=== PATIENT | male | born 1965 | race Caucasian/White ===

== ENCOUNTER 2018-04-24 12:07 | Inpatient (IN) ==
[2018-04-24] MEDS: *HR* Heparin 5,000 UNIT/ML VIAL SQ SCH (19:00)
[2018-04-24] MEDS: *HR* HYDROcodone/Acet 5/325 mg TABLET PO PRN ×2 (19:01→23:24)
[2018-04-24] MEDS: Bumetanide 1 MG TABLET PO SCH (20:10)
[2018-04-24] MEDS: Lactobacillus 1 EACH CAP.SPRINK PO SCH (22:18)
[2018-04-24] MEDS: traZODone 50 MG TABLET PO SCH (22:18)
[2018-04-24] MEDS: hydrALAZINE 25 MG TABLET PO SCH (22:19)
[2018-04-25] MEDS: *HR* Heparin 5,000 UNIT/ML VIAL SQ SCH ×2 (05:33→17:00)
[2018-04-25] MEDS: *HR* HYDROcodone/Acet 5/325 mg TABLET PO PRN ×4 (05:34→19:12)
[2018-04-25 05:53] LABS: Basophils # 0.1 K/mcL (0.0-0.2); Basophils % 0.5 %; Eosinophils # 0.5 K/mcL (0.0-0.6); Eosinophils % 3.4 %; Hematocrit 31.9 % (37.5-50.1); Immature Granulocytes % 9.6 % (0-4); Lymphocytes # 1.9 K/mcL (0.6-4.6); Lymphocytes % 12.3 %; Mean Corpuscular HGB Conc 31.3 g/dL (31.6-35.5); Mean Corpuscular Hemoglobin 26.4 pg (28.0-33.3); Mean Corpuscular Volume 84.2 fL (83.0-100.0); Mean Platelet Volume 8.4 fL (9.4-12.4); Monocytes # 0.9 K/mcL (0.0-1.3); Monocytes % 5.7 %; Platelet Count 273 K/mcL (140-400); Red Blood Count 3.79 M/mcL (4.19-5.50); Red Cell Distribution Width 15.9 % (11.5-14.5); Segmented Neutrophils % 68.5 %
[2018-04-25 06:08] LABS: Alanine Aminotransferase 92 Units/L (7-52); Albumin 2.4 g/dL (3.5-5.7); Albumin/Globulin Ratio 0.9 (1.1-2.2); Alkaline Phosphatase 94 Units/L (34-104); Aspartate Amino Transferase 42 Units/L (13-39); BUN/Creatinine Ratio 21 (6-26); Bilirubin,Total 0.4 mg/dL (0.3-1.0); Blood Urea Nitrogen 16 mg/dL (6-20); Calcium 12.4 mg/dL (8.6-10.3); Carbon Dioxide 27 mEq/L (23-29); Chloride 103 mEq/L (98-107); Globulin 2.8 g/dL (2.4-3.5); Glucose 94 mg/dL (70-105); Osmolality,Calculated 275 (280-300); Potassium 3.7 mEq/L (3.5-5.1); Sodium 132 mEq/L (136-145); Total Protein 5.2 g/dL (6.4-8.9); eGFR For Non-African Americans > 60 (> 60)
[2018-04-25 06:40] LABS: Neutrophils # 10.3 K/mcL (1.6-8.9)
[2018-04-25] MEDS: Lactobacillus 1 EACH CAP.SPRINK PO SCH ×2 (09:03→20:13)
[2018-04-25] MEDS: hydrALAZINE 25 MG TABLET PO SCH ×2 (09:03→20:13)
[2018-04-25] MEDS: Multivit/Ca/Min/Fe/FA 1 TAB TABLET PO SCH (09:03)
[2018-04-25] MEDS: Loratadine 10 MG TABLET PO SCH (09:03)
[2018-04-25] MEDS: Aspirin Enteric Coated 81 MG Tablet PO SCH (09:04)
[2018-04-25] MEDS: Bumetanide 1 MG TABLET PO SCH ×2 (09:04→16:59)
--- NOTE | 2018-04-25 15:22 | Internal Med History&Physical ---
Date of Encounter: 04/25/18 Time of Encounter: 15:10 Assessment and Plan (1) Pleural effusion Current visit: No Status: Acute Will continue on antibiotics for 2 weeks and watch his drainage, intermittently checked CBC, follow clinically. For now, we will simply keep him to a dry dressing. (2) Hypercalcemia Current visit: No Status: Acute We will keep him on medication and follow calcium, intermittently. Follow-up with general surgery, as planned. (3) CAD (coronary artery disease) Current visit: No Status: Chronic Clinically stable but will need preoperative evaluation by cardiology as noted. I will not restart Klonopin at this time but will defer to cardiology. Qualifiers: Coronary Disease-Associated Artery/Lesion type: unspecified vessel or lesion type [place] vs. transplanted heart: [place] heart Associated angina: without angina Qualified Code(s): I25.10 - Atherosclerotic heart disease of [place] coronary artery without angina pectoris (4) HTN (hypertension) Current visit: No Status: Chronic Clinically stable on current regimen. Will continue as planned. Qualifiers: Hypertension type: essential hypertension Qualified Code(s): I10 - Essential (primary) hypertension (5) GERD (gastroesophageal reflux disease) Current visit: No Status: Acute Stable on PPI and sucralfate. Qualifiers: Esophagitis presence: esophagitis presence not specified Qualified Code(s): K21.9 - Gastro-esophageal reflux disease without esophagitis (6) Anxiety and depression Current visit: No Status: Chronic Treated with sertraline and trazodone, daily. (7) DVT prophylaxis Current visit: No Status: Acute Discussed with patient and he agrees to use heparin subcutaneous as the likelihood of bleeding related to this is minimal. I told him that if his drainage becomes more than pink he should let us know, immediately. (8) H/O mitral valve replacement Current visit: No Status: Chronic Clinically stable and apparently only symptoms have been dyspnea on exertion which is improving with weight loss. (9) Atrial flutter Current visit: No Status: Chronic Per history, this is paroxysmal and the patient is currently in normal sinus rhythm. Qualifiers: Atrial flutter type: unspecified Qualified Code(s): I48.92 - Unspecified atrial flutter (10) ROBERTO on CPAP Current visit: No Status: Chronic The patient states that this is stable and he is looking forward to having his home CPAP unit. (11) Morbid obesity with BMI of 60.0-69.9, adult Current visit: No Status: Chronic This is ongoing but patient is aware that he needs to lose weight and has been working on same. (12) Peripheral edema Current visit: No Status: Acute The patient relates this to recent medical disruption and we will follow. (13) TIA (acute kidney injury) Current visit: No Status: Acute Apparently resolved. (14) Hyponatremia Current visit: No Status: Resolved This is now marginal at 132 and we will follow. We will use only a low salt diet (15) Parathyroid adenoma Current visit: No Status: Acute Left lower pole per sestamibi scan. This will be followed by general surgery, as noted. (16) Postoperative bleeding from incision Current visit: No Status: Acute Will watch clinically and keep an eye on white count, temperature, etc. (17) Herpes simplex Current visit: No Status: Acute I am not sure that this diagnosis is accurate but we will follow as it seems that these issues are resolving, currently. Internal Medicine - H&P: HPI Chief complaint: Weakness Admitted From: Hospital to Hospital Transfer Plans for Post Hospital Care: Home History of present illness: Mr. Zheng is a 52 year old male with a complicated history. He was admitted 3 times because of dyspnea, chest discomfort, and weakness. The first time was about 3 weeks ago when he had empyema and ended up with a chest tube with reaccumulation of fluid. He had suturing the most recent time and was found at the third hospital visit to have hypercalcemia. Because of holding of his diuretic, he was felt to be enuretic and underwent dialysis but when he protested he was found to have normal renal function, or at least adequate, and adequate urinary output. He states they held his diuretics were for 5 days and he became edematous, at that time. He states this is improving. He still has chest pain which is attributed to spasm at the left chest. This is especially severe with sneezing or coughing. He denies other chest pain and has not had any cardiac related chest pain for quite some time. Because of his hypercalcemia, he was found to have a left lower lobe parathyroid probable adenoma and was seen by general surgery who plans to see him in 2 weeks for possible parathyroid adenectomy. He was seen by endocrinology who placed him on medication and had normalization of his calcium. Because of hyponatremia and he was placed on fluid restriction. His sodium has been stable to improved. Review of his paperwork has 2 different plans for antibiotics: One says 3 days to complete a 5 day total course of another point in his thoracic surgery consultation recommends a total of 2 weeks of antibiotics until seen by them. While at the other hospital he fell and has a "knot" at the right inner, lower forearm, just above the olecranon process. He wanted this route because he keeps bumping it on things and the nurses refused to do so until seen by me. He has a rash which developed about 5 days ago and his sacral region, both sides. He states he gets this about every 6 months. He was told by Dr. avalos Hyannis that this was "herpes." He states that he has thought this was shingles. Past medical history is significant for atrial fibrillation which is happened on 2 occasions. He is not taking anticoagulation for same and is been in a regular rhythm on recent examinations. In 2013 he underwent a valve replacement of the mitral valve which she thinks is porcine. At that time he also had 3 stents of his coronary arteries and has not had any problems, thereafter. He states that her recent echocardiogram showed that his ejection fraction was 65%. General surgery requested cardiology evaluation preoperatively. This is apparently scheduled as an outpatient. 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 Corral. He is on a statin for hyperlipidemia and is on aspirin to prevent reocclusion of his stenoses. However, clopidogrel was discontinued. He has a history of gastritis and takes a PPI and sucralfate for same. He uses a CPAP for sleep apnea for about 5 years. He uses trazodone 50 mg as a sleep aid, every night. He is allergic to penicillin and sulfa but is unsure of the reaction. We discussed his medications intermittently during the interview. He has never been a smoker. He was an alcoholic but stopped drinking 25 years ago. He does not use marijuana or drugs. 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 He has been living with his parents, only because of his sickness. He has struggled with obesity, all his life. He has lost 50 pounds because he began to exercise in the summer but also because of his sickness in the late fall. Patient has no complaint of chest discomfort, dyspnea, orthopnea, breathing problems, palpitations, nausea or vomiting, constipation or diarrhea, other changes in bowel habits, heartburn, difficulty with urination, kidney problems or kidney stones, fevers chills or sweats, rash or itching, seizures, headache or lightheadedness, heat or cold intolerance, blood problems or anemia, or other new complaints, except as mentioned above. Review of systems is otherwise negative. Past Med Surg Social Fam HX - Past Medical History Medical history: atrial fibrillation, coronary artery disease, DVT, hyperlipidemia, hypertension, myocardial infarction, other Additional medical history: sleep apnea, rheumatic fever, arthritis, alcohol abuse, STEMI, tracheal stenosis, cholelithiasis Psychiatric history: anxiety, depression - Past Surgical History Surgical History: angioplasty/stent, cholecystectomy, heart valve replacement, orthopedic, other, other Additional surgical history: tracheostomy and tracheal dilitation x 6, last time November 2016 - Social History Smoking Status: Never smoker Smokeless Tobacco Status: Yes Alcohol use: none Drug use: none - Family History Father Adopted: No Family Member Ethnicity: Non- Living Status: Still Living Hx Family Cardiac Disorders: Yes (HTN, HLD) Hx Family Respiratory Disorders: No Hx Family Cancer: Yes (Chronic lyphmpatic lyphoma) Hx Family GI Disorders: Yes (ulcers,gerd) Hx Family Endocrine Disorder: No Hx Family Neuromuscular Disorders: No Hx Family Neurologic Disorders: No Hx Family HEENT Disorders: No Hx Family Autoimmune Disorders: No Mother Family Member Ethnicity: Non- Living Status: Still Living Hx Family Cardiac Disorders: Yes (HTN, HLD) Hx Family Respiratory Disorders: No Hx Family Cancer: Yes (skin) Hx Family GI Disorders: Yes Hx Family Endocrine Disorder: No Hx Family Neuromuscular Disorders: No Hx Family Neurologic Disorders: No Hx Family HEENT Disorders: No Hx Family Autoimmune Disorders: No Internal Medicine - H&P: Meds Aspirin [Adult Aspirin Regimen] 81 mg PO DAILY 02/12/18 [History] Loratadine [Claritin] 10 mg PO DAILY 02/12/18 [History] Multivitamin [One Daily Multivitamin] 2 tab PO DAILY 02/12/18 [History] Pantoprazole Sodium [Protonix] 20 mg PO BID 02/12/18 [History] Potassium Chloride [K-Tab ER] 20 meq PO DAILY 02/12/18 [History] Pravastatin Sodium [Pravachol] 40 mg PO DAILY 02/12/18 [History] Sertraline [Zoloft] 100 mg PO DAILY 02/12/18 [History] traZODone [TraZODone] 50 mg PO HS 02/12/18 [History] Albuterol Sulfate [Ventolin Hfa] 2 puff IH Q4H PRN #0 03/17/18 [Rx] Carvedilol [Coreg] 12.5 mg PO BIDWM #60 tablet 03/17/18 [Rx] Ferrous Sulfate 325 mg PO BIDWM #60 tablet 03/17/18 [Rx] Sucralfate [Carafate] 10 ml PO BID 04/08/18 [History] Bumetanide [Bumex] 1 mg PO BID 04/19/18 [History] HYDROcodone/Acet 5/325 mg [Hume 5-325 mg] 1 tab PO Q4H PRN 04/19/18 [History] Hydralazine HCl 50 mg PO BID 04/19/18 [History] Cinacalcet [Sensipar] 30 mg PO DAILY tablet 04/23/18 [Rx] Cinacalcet [Sensipar] 30 mg PO DAILY #30 tablet 04/23/18 [Rx] Clindamycin HCl [Cleocin HCl] 600 mg PO TID 15 Days #5 cap 04/23/18 [Rx] Lactobacillus Acidophilus [Acidophilus] 1 each PO BID 5 Days #10 capsule 04/23/18 [Rx] Allergy/AdvReac Type Severity Reaction Status Date / Time Penicillins Allergy See Verified 04/19/18 12:09 Comments Sulfa (Sulfonamide Allergy See Verified 04/19/18 12:09 Antibiotics) Comments All Systems PM: Please see history of present illness above. I. - Constitutional Vitals: Temp Pulse Resp BP Pulse Ox 97.9 F 66 16 138/80 98 04/25/18 11:49 04/25/18 11:49 04/25/18 11:49 04/25/18 11:49 04/25/18 11:49 Exam: Examination: (Except as mentioned above): General: In no apparent distress, alert and oriented 3. Patient is bald. Head: Atraumatic and normocephalic. Eyes: Extraocular muscles are intact, pupils equal round and reactive to light and accommodation. Sclerae anicteric. Ears: External ears are normal to inspection and hearing is grossly normal. Nose: Patent without lesion noted. Mouth: No intraoral lesions seen. Dentition is unremarkable. Neck: Supple with trachea midline. There is no thyromegaly or adenopathy but there is a prominence of the left lower thyroid pole which is consistent with unknown parathyroid adenoma and carotids are 2+ without bruit heard. Respiratory: No use of accessory muscles. Lungs are clear throughout. Normal airflow. Cardiovascular: Regular rate and rhythm without murmur appreciated. Abdomen: Bowel sounds are normal. No hepatosplenomegaly masses or tenderness. Morbidly obese and therefore difficult to palpate deeply. Patient is examined upright at bedside and this also limits exam. Extremities: No cyanosis clubbing but does have 2+ edema at left greater than right lower extremity. He has no asymmetry of right forearms. However, there is a tender, swollen area as described which is about 2.5 cm in diameter, just above the right olecranon process. It is mild to moderately tender with no abnormality of vein, otherwise. I suspect this represents resolving hematoma or superficial phlebitis but I see no sign of DVT or cellulitis.. Neurological: A and O 3. Cranial nerves II through XII are intact. No focal deficits and no abnormal movements or postures. Skin: He has left lower chest wound at the left posterior axillary line which is draining serosanguineous drainage in a fairly large amount. This is nonpurulent, has no foul smell. There also excoriated but crusted lesions at his upper sacral region, right greater than left. The patient points to his left upper buttock but the lesions at the right are more pronounced. He not show edema or signs of infection. Breasts, pelvic and rectal: Not examined. Internal Med - H&P Results - Labs CBC & Chem 7: 04/25/18 05:45 04/25/18 05:45 Labs: Short CBC 04/25/18 Range/Units 05:45 WBC 15.1 H (4.3-11.1) K/mcL Hgb 10.0 L (12.9-16.9) g/dL Hct 31.9 L (37.5-50.1) % Plt Count 273 (140-400) K/mcL Neutrophils # 10.3 H (1.6-8.9) K/mcL BMP 04/25/18 05:45 Sodium 132 L Potassium 3.7 Chloride 103 Carbon Dioxide 27 BUN 16 Creatinine 0.78 Glucose 94 Calcium 12.4 H Liver Function 04/25/18 Range/Units 05:45 Total Bilirubin 0.4 (0.3-1.0) mg/dL AST 42 H (13-39) Units/L ALT 92 H (7-52) Units/L Alkaline Phosphatase 94 (34-104) Units/L Albumin 2.4 L (3.5-5.7) g/dL
[2018-04-25] MEDS: traZODone 50 MG TABLET PO SCH (20:13)
[2018-04-26] MEDS: *HR* HYDROcodone/Acet 5/325 mg TABLET PO PRN ×4 (00:21→18:54)
[2018-04-26] MEDS: *HR* Heparin 5,000 UNIT/ML VIAL SQ SCH ×2 (05:50→17:21)
[2018-04-26] MEDS: Multivit/Ca/Min/Fe/FA 1 TAB TABLET PO SCH (08:10)
[2018-04-26] MEDS: Aspirin Enteric Coated 81 MG Tablet PO SCH (08:10)
[2018-04-26] MEDS: hydrALAZINE 25 MG TABLET PO SCH ×2 (08:11→19:51)
[2018-04-26] MEDS: Bumetanide 1 MG TABLET PO SCH ×2 (08:11→17:21)
[2018-04-26] MEDS: Loratadine 10 MG TABLET PO SCH (08:11)
[2018-04-26] MEDS: Lactobacillus 1 EACH CAP.SPRINK PO SCH ×2 (08:15→19:51)
--- NOTE | 2018-04-26 14:30 | Internal Med Progress Note ---
Date of Encounter: 04/26/18 Time of Encounter: 14:28 - Assessment and plan (1) Pleural effusion Current Visit: No Status: Acute Assessment and plan: Clinically stable. We will check white count, again tomorrow. No fever. He is to follow up with thoracic surgery in about 3 or 4 days. (2) Hypercalcemia Current Visit: No Status: Acute Assessment and plan: Will recheck tomorrow. (3) CAD (coronary artery disease) Current Visit: No Status: Chronic Assessment and plan: Clinically stable without symptoms. Qualifiers: Coronary Disease-Associated Artery/Lesion type: unspecified vessel or lesion type [place] vs. transplanted heart: [place] heart Associated angina: without angina Qualified Code(s): I25.10 - Atherosclerotic heart disease of [place] coronary artery without angina pectoris (4) HTN (hypertension) Current Visit: No Status: Chronic Assessment and plan: Marginally controlled. Qualifiers: Hypertension type: essential hypertension Qualified Code(s): I10 - Essent ial (primary) hypertension (5) GERD (gastroesophageal reflux disease) Current Visit: No Status: Acute Assessment and plan: No symptoms. Qualifiers: Esophagitis presence: esophagitis presence not specified Qualified Code(s): K21.9 - Gastro-esophageal reflux disease without esophagitis (6) Anxiety and depression Current Visit: No Status: Chronic Assessment and plan: Stable on SSRI and tricyclic. (7) DVT prophylaxis Current Visit: No Status: Acute Assessment and plan: Heparin subcutaneous. (8) H/O mitral valve replacement Current Visit: No Status: Chronic Assessment and plan: Stable and on no anticoagulation. (9) Atrial flutter Current Visit: No Status: Chronic Assessment and plan: Paroxysmal with no symptoms reported and no findings. Qualifiers: Atrial flutter type: unspecified Qualified Code(s): I48.92 - Unspecified atrial flutter (10) ROBERTO on CPAP Current Visit: No Status: Chronic (11) Morbid obesity with BMI of 60.0-69.9, adult Current Visit: No Status: Chronic (12) Peripheral edema Current Visit: No Status: Acute Assessment and plan: Slightly improved, per exam. (13) TIA (acute kidney injury) Current Visit: No Status: Acute Assessment and plan: Resolved. (14) Hyponatremia Current Visit: No Status: Resolved Assessment and plan: We will recheck tomorrow. (15) Parathyroid adenoma Current Visit: No Status: Acute Assessment and plan: For surgery and preoperative cardiac evaluation, as noted. (16) Postoperative bleeding from incision Current Visit: No Status: Acute Assessment and plan: Improving and will follow. (17) Herpes simplex Current Visit: No Status: Acute - Subjective Interval history: Patient is feeling reasonably well. He states that he has slightly improved his chest pain at the left lower chest. He would like to take a shower today and wonders if he can. Since yesterday at 7 PM he has had no drainage until just now. The drainage w hich saturates part of his dressing is pink serosanguineous fluid. It seems less than yesterday and intensity. Nursing asks if he can have MiraLAX when necessary and I complied. Discussed care with other providers and/or nursing. Patient has no complaint of chest discomfort, dyspnea, orthopnea, palpitations, nausea or vomiting, constipation or diarrhea, other changes in bowel habits, dif ficulty with urination, rash or itching, or other new complaints, except as mentioned above. Review of systems is otherwise negative. - Constitutional Vitals: Temp Pulse Resp BP Pulse Ox 98.3 F 82 18 150/83 96 04/26/18 11:00 04/26/18 11:00 04/26/18 11:00 04/26/18 11:00 04/26/18 11:00 Exam: Examination: (Except as mentioned above): General: In no apparent distress. Alert and oriented 3. Nondiaphoretic. Head: Atraumatic and normocephalic. Respiratory: No use of accessory muscles. Lungs are clear throughout. Normal airflow. Cardiovascular: Regular rate and rhythm without murmur appreciated. Abdomen: Bowel sounds are normal. No hepatosplenomegaly mass or tenderness appreciated. Obese and therefore difficult to palpate deeply. Patient is examined upright in chair and this also limits exam. Extremities: No cyanosis clubbing or edema. Skin: Warm and non-diaphoretic with no new lesions noted. Wound drainage is less pink than yesterday, as noted. It is not foul-smelling and actually relatively small in amount. Internal Medicine: Result - Labs CBC & Chem 7: 04/25/18 05:45 04/25/18 05:45 Consult Discharge Plan - Plan Referrals: NONE,PCP [Primary Care Provider] -
[2018-04-26] MEDS: traZODone 50 MG TABLET PO SCH (19:51)
[2018-04-27] MEDS: *HR* HYDROcodone/Acet 5/325 mg TABLET PO PRN ×4 (01:08→20:56)
[2018-04-27] MEDS: *HR* Heparin 5,000 UNIT/ML VIAL SQ SCH ×2 (06:04→16:36)
[2018-04-27] MEDS: Bumetanide 1 MG TABLET PO SCH ×2 (08:37→16:26)
[2018-04-27] MEDS: Lactobacillus 1 EACH CAP.SPRINK PO SCH ×2 (08:37→20:55)
[2018-04-27] MEDS: hydrALAZINE 25 MG TABLET PO SCH ×2 (08:37→20:56)
[2018-04-27] MEDS: Multivit/Ca/Min/Fe/FA 1 TAB TABLET PO SCH (08:38)
[2018-04-27] MEDS: Aspirin Enteric Coated 81 MG Tablet PO SCH (08:38)
[2018-04-27] MEDS: Loratadine 10 MG TABLET PO SCH (08:38)
[2018-04-27 14:59] LABS: ABG Ionized Calcium 1.69 mmol/L (1.15-1.35)
[2018-04-27 15:02] LABS: Basophils % 0.3 %; Eosinophils % 2.6 %; Hematocrit 30.9 % (37.5-50.1); Hemoglobin 9.6 g/dL (12.9-16.9); Immature Granulocytes % 2.9 % (0-4); Lymphocytes # 1.8 K/mcL (0.6-4.6); Lymphocytes % 13.6 %; Mean Corpuscular HGB Conc 31.1 g/dL (31.6-35.5); Mean Corpuscular Hemoglobin 26.2 pg (28.0-33.3); Mean Corpuscular Volume 84.2 fL (83.0-100.0); Mean Platelet Volume 8.8 fL (9.4-12.4); Monocytes # 0.6 K/mcL (0.0-1.3); Monocytes % 4.4 %; Neutrophils # 10.1 K/mcL (1.6-8.9); Platelet Count 279 K/mcL (140-400); Red Blood Count 3.67 M/mcL (4.19-5.50); Red Cell Distribution Width 15.8 % (11.5-14.5); Segmented Neutrophils % 76.2 %
[2018-04-27 15:03] LABS: Eosinophils # 0.4 K/mcL (0.0-0.6)
[2018-04-27 15:25] LABS: Alanine Aminotransferase 53 Units/L (7-52); Albumin 2.7 g/dL (3.5-5.7); Albumin/Globulin Ratio 0.8 (1.1-2.2); Alkaline Phosphatase 90 Units/L (34-104); Aspartate Amino Transferase 28 Units/L (13-39); BUN/Creatinine Ratio 16 (6-26); Bilirubin,Total 0.4 mg/dL (0.3-1.0); Blood Urea Nitrogen 16 mg/dL (6-20); Calcium 12.3 mg/dL (8.6-10.3); Carbon Dioxide 28 mEq/L (23-29); Chloride 104 mEq/L (98-107); Globulin 3.4 g/dL (2.4-3.5); Glucose 109 mg/dL (70-105); Osmolality,Calculated 286 (280-300); Sodium 137 mEq/L (136-145); Total Protein 6.1 g/dL (6.4-8.9); eGFR For Non-African Americans > 60 (> 60)
[2018-04-27] MEDS: traZODone 50 MG TABLET PO SCH (20:56)
[2018-04-28] MEDS: *HR* HYDROcodone/Acet 5/325 mg TABLET PO PRN ×4 (01:53→21:17)
[2018-04-28] MEDS: *HR* Heparin 5,000 UNIT/ML VIAL SQ SCH (05:04)
[2018-04-28] MEDS: Aspirin Enteric Coated 81 MG Tablet PO SCH (08:48)
[2018-04-28] MEDS: Bumetanide 1 MG TABLET PO SCH ×2 (08:48→16:23)
[2018-04-28] MEDS: Multivit/Ca/Min/Fe/FA 1 TAB TABLET PO SCH (08:49)
[2018-04-28] MEDS: Loratadine 10 MG TABLET PO SCH (08:49)
[2018-04-28] MEDS: hydrALAZINE 25 MG TABLET PO SCH ×2 (08:49→21:16)
[2018-04-28] MEDS: Lactobacillus 1 EACH CAP.SPRINK PO SCH ×2 (08:49→21:16)
[2018-04-28] MEDS ORDERED: Acetaminophen 325 MG TABLET PO PRN (10:13)
--- NOTE | 2018-04-28 11:48 | Internal Med Progress Note ---
Date of Encounter: 04/28/18 Time of Encounter: 11:47 - Assessment and plan (1) Pleural effusion Current Visit: No Status: Acute Assessment and plan: Because of his exam and not draining, we will recheck a chest x-ray to see if he is reaccumulating fluid. (2) Hypercalcemia Current Visit: No Status: Acute Assessment and plan: We will increase his cinacalcet to 60 mg daily and follow. (3) CAD (coronary artery disease) Current Visit: No Status: Chronic Assessment and plan: No signs or symptoms. Qualifiers: Coronary Disease-Associated Artery/Lesion type: unspecified vessel or lesion type [place] vs. transplanted heart: [place] heart Associated angina: without angina Qualified Code(s): I25.10 - Atherosclerotic heart disease of [place] coronary artery without angina pectoris (4) HTN (hypertension) Current Visit: No Status: Chronic Assessment and plan: Clinically stable and will follow. Qualifiers: Hypertension type: essential hypertension Qualified Code(s): I10 - Essen tial (primary) hypertension (5) GERD (gastroesophageal reflux disease) Current Visit: No Status: Acute Assessment and plan: Stable but will need to watch his GI symptoms with the increase in cinacalcet. Qualifiers: Esophagitis presence: esophagitis presence not specified Qualified Code(s): K21.9 - Gastro-esophageal reflux disease without esophagitis (6) Anxiety and depression Current Visit: No Status: Chronic Assessment and plan: Clinically stable and will follow. (7) DVT prophylaxis Current Visit: No Status: Acute Assessment and plan: See comments under subjective above. (8) H/O mitral valve replacement Current Visit: No Status: Chronic Assessment and plan: Stable without signs or symptoms. (9) Atrial flutter Current Visit: No Status: Chronic Assessment and plan: Regular per exam. Assuming normal sinus. Qualifiers: Atrial flutter type: unspecified Qualified Code(s): I48.92 - Unspecified at [facility] flutter (10) ROBERTO on CPAP Current Visit: No Status: Chronic Assessment and plan: Clinically stable. Has home unit and uses this at night. (11) Morbid obesity with BMI of 60.0-69.9, adult Current Visit: No Status: Chronic (12) Peripheral edema Current Visit: No Status: Acute Assessment and plan: No real change and will follow. (13) TIA (acute kidney injury) Current Visit: No Status: Acute Assessment and plan: Stable. (14) Parathyroid adenoma Current Visit: No Status: Acute Assessment and plan: For surgical appointment, this week. Will need to optimize care in anticipation of upcoming surgery. (15) Postoperative bleeding from incision Current Visit: No Status: Acute Assessment and plan: This seems to have resolved. (16) Herpes simplex Current Visit: No Status: Acute Assessment and plan: Uncertain diagnosis. - Subjective Interval history: Patient would like to stop receiving heparin and I felt that his ambulation is adequate. However, I did instruct him the use of venous return exercises. We discussed his hypercalcemia and increasing his cinacalcet. He still feels occasionally like he is sleepy or not thinking clearly. He would like to change to Tylenol from hydrocodone as his pain is improving but his thinking is somewhat limited. He admits to mild increase in nausea but no other GI symptoms. I told him that we would need to have him follow with his urologist, eventually. I told him we would increase his medication to 60 mg daily but that he could go up to 180 mg, if he needs to. We reviewed his markedly elevated ionized calcium and the fact that his calcium total has clearly decreased, at all. Bowels have moved well and not had diarrhea. He has no drainage for about 36 hours. Discussed care with other providers and/or nursing. Patient has no complaint of chest discomfort, dyspnea, orthopnea, palpitations, nausea or vomiting, constipation or diarrhea, other changes in bowel habits, difficulty with urination, rash or itching, or other new complaints, except as mentioned above. Review of systems is otherwise negative. - Constitutional Vitals: Temp Pulse Resp BP Pulse Ox 97.7 F 79 17 130/73 96 04/28/18 07:57 04/28/18 07:57 04/28/18 07:57 04/28/18 07:57 04/28/18 07:57 Exam: Examination: (Except as mentioned above): General: In no apparent distress. Alert and oriented 3. Nondiaphoretic. Head: Atraumatic and normocephalic. Respiratory: No use of accessory muscles. Lungs sounds are diminished at the left base and this is disconcerting versus yesterday with his history of not draining. Normal airflow, otherwise. Cardiovascular: Regular rate and rhythm without murmur appreciated. Abdomen: Bowel sounds are normal. No hepatosplenomegaly mass or tenderness appreciated. Obese and therefore difficult to palpate deeply. Patient is examined upright in chair and this also limits exam. Extremities: No cyanosis clubbing or change in edema. Skin: Warm and non-diaphoretic with no new lesions noted. His wound is looking intact and nearly healed. He has got no drainage on the skin but the dressing has minimal pink discoloration.. Internal Medicine: Result - Labs CBC & Chem 7: 04/27/18 14:19 04/27/18 14:19 Labs: Short CBC 04/27/18 Range/Units 14:19 WBC 13.3 H (4.3-11.1) K/mcL Hgb 9.6 L (12.9-16.9) g/dL Hct 30.9 L (37.5-50.1) % Plt Count 279 (140-400) K/mcL Neutrophils # 10.1 H (1.6-8.9) K/mcL BMP 04/27/18 14:19 Sodium 137 Potassium 4.0 Chloride 104 Carbon Dioxide 28 BUN 16 Creatinine 1.00 Glucose 109 H Calcium 12.3 H Liver Function 04/27/18 Range/Units 14:19 Total Bilirubin 0.4 (0.3-1.0) mg/dL AST 28 (13-39) Units/L ALT 53 H (7-52) Units/L Alkaline Phosphatase 90 (34-104) Units/L Albumin 2.7 L (3.5-5.7) g/dL Consult Discharge Plan - Plan Referrals: NONE,PCP [Primary Care Provider] -
[2018-04-28] MEDS: traZODone 50 MG TABLET PO SCH (21:16)
[2018-04-29] MEDS: *HR* HYDROcodone/Acet 5/325 mg TABLET PO PRN ×5 (03:28→22:38)
[2018-04-29] MEDS: hydrALAZINE 25 MG TABLET PO SCH ×2 (08:18→22:37)
[2018-04-29] MEDS: Aspirin Enteric Coated 81 MG Tablet PO SCH (08:18)
[2018-04-29] MEDS: Lactobacillus 1 EACH CAP.SPRINK PO SCH ×2 (08:18→22:37)
[2018-04-29] MEDS: Multivit/Ca/Min/Fe/FA 1 TAB TABLET PO SCH (08:18)
[2018-04-29] MEDS: Bumetanide 1 MG TABLET PO SCH ×2 (08:18→17:03)
[2018-04-29] MEDS: Loratadine 10 MG TABLET PO SCH (08:19)
--- NOTE | 2018-04-29 12:58 | Internal Med Progress Note ---
Addendum entered and electronically signed by Carlitos Allan MD 04/30/18 11:26: I have personally performed a face to face evaluation on this patient. I have r eviewed and agree with the care plan. History and Exam by me shows: For schedule and/or computer reasons, this note is a late entry. Patient was seen on the date of the initial note. Patient is without complaint. He is doing well with therapies. He is pleased to be going home in a few days. He feels generally better and I told him that he should improve as his calcium improves. Bowels and bladder have been functioning normally and he has no interval complaints. Discussed care with other providers and/or nursing. Patient has no complaint of chest discomfort, dyspnea, orthopnea, palpitations, nausea or vomiting, constipation or diarrhea, other changes in bowel habits, difficulty with urination, rash or itching, or other new complaints, except as mentioned above. Review of systems is otherwise negative. Examination: (Except as mentioned above): General: In no apparent distress. Alert and oriented 3. Nondiaphoretic. Head: Atraumatic and normocephalic. Respiratory: No use of accessory muscles. Lungs are clear throughout. Normal airflow. Cardiovascular: Regular rate and rhythm with grade 2/6 systolic murmur as before. Abdomen: Bowel sounds are normal. No hepatosplenomegaly mass or tenderness appreciated. Obese and therefore difficult to palpate deeply. Patient is examined upright in chair and this also limits exam. Extremities: No cyanosis clubbing or angina edema. Skin: Warm and non-diaphoretic with no new lesions noted. We discussed his follow-up regarding calcium and removal of his parathyroid gland, at length. Patient understands that this needs to be prioritize and wait for several months. So reviewed again with him about titration of his medic ation for calcium. Original Note: Date of Encounter: 04/29/18 Time of Encounter: 12:55 - Assessment and plan (1) Pleural effusion Current Visit: Yes Status: Acute Assessment and plan: Patient continues to have a minimal amount of serous drainage from left chest tube site. Recent chest x-ray showed continued left basilar pleural effusion, with no infectious process or pneumothorax noted. Patient states that his respiratory effort has improved over the last few days, but continues to have slight dyspnea during exertional while at therapy. Denies any productive cough. Denies fever or chills. We will continue with daily dressing change to chest tube site and monitor his drainage. We will obtain a chest x-ray in the a.m. for further evaluation (2) Chronic renal insufficiency, stage II (mild) Current Visit: Yes Status: Chronic Assessment and plan: No acute issues. Patient's most recent labs show a creatinine of 1.0. Patient's continue with current medications (3) Parathyroid adenoma Current Visit: No Status: Acute Assessment and plan: Patient's latest calcium was 10.2. Continues on cinacalcet. We will recheck labs in the morning. Patient currently appears asymptomatic. - Time Spent With Patient less than 15 minutes - Subjective Interval history: Patient appears relaxed and currently denies any discomforts or shortness of breath. Patient states that his respiratory status has improved greatly over the last few days. Patient states he has noticed a continues to have a minimal amount of serous type drainage to his left chest flank chest tube site. Denies any fever or chills. Eyes productive cough. States he continues to get slightly dyspneic during therapy, but again his endurance is greatly improved - Constitutional Vitals: Temp Pulse Resp BP Pulse Ox 97.4 F L 72 16 164/96 94 04/29/18 06:44 04/29/18 06:44 04/29/18 06:44 04/29/18 06:44 04/29/18 06:44 General appearance: Present: A&O X 3 - Head Head exam: Present: atraumatic, normocephalic - Eye Eye exam: Present: PERRL, conjuntiva pink, sclera anicteric Pupils: Present: PERRL - Neck Neck exam general surgery: Present: supple, trachea midline. Absent: lymphadenopathy - Respiratory Respiratory exam: Present: CTAB. Absent: accessory muscle use, rales, rhonchi, wheezes Additional comments: Lungs are clear throughout upper aragon with diminished basilar aragon. No productive cough. Rest. Effort appears relaxed. Left chest flank with several wounds from previous chest tubes. Sutures remain in place. Patient continues to have minimal amount of serous type drainage from chest tube wound. - Cardiovascular Cardiovascular exam: Present: RRR, +S1, +S2, systolic murmur. Absent: diastolic murmur, gallop, rubs - GI/Abdominal GI/Abdominal exam: Present: normal bowel sounds, soft, no peritoneal signs. Absent: distended, tenderness - Extremities Exam Extremities exam: Present: warm, radial pulses palpable and symmetrical. Ab sent: calf tenderness, cyanotic, pedal edema - Neurological Exam Neurological exam: Present: CN II-XII intact, oriented X3, no focal deficits. Absent: pronater drift, facial droop, speech deficit - Skin Skin exam: Present: dry, intact Internal Medicine: Result - Labs CBC & Chem 7: 04/27/18 14:19 04/27/18 14:19 - Impressions Impressions Chest X-Ray 04/28/18 12:10 IMPRESSION: Findings similar to the prior study showing partially loculated left pleural effusion with left basilar airspace disease. Central pulmonary vascular congestion is suspected, similar to the prior study. D/ / Ashli Tucker Cha, MD / Ashli Tucker Cha, MD Interpreting Provider: Ashli Tucker Cha, MD Consult Discharge Plan - Plan Referrals: NONE,PCP [Primary Care Provider] -
[2018-04-29] MEDS: Ondansetron ODT 4 MG TAB.RAPDIS SL PRN (13:32)
[2018-04-29] MEDS: traZODone 50 MG TABLET PO SCH (22:37)
[2018-04-30] MEDS: *HR* HYDROcodone/Acet 5/325 mg TABLET PO PRN ×3 (06:41→20:13)
[2018-04-30] MEDS: Ondansetron ODT 4 MG TAB.RAPDIS SL PRN ×2 (06:41→13:13)
[2018-04-30 08:13] LABS: Hematocrit 32.2 % (37.5-50.1); Mean Corpuscular HGB Conc 31.1 g/dL (31.6-35.5); Mean Corpuscular Hemoglobin 26.4 pg (28.0-33.3); Mean Platelet Volume 8.6 fL (9.4-12.4); Platelet Count 288 K/mcL (140-400); Red Blood Count 3.79 M/mcL (4.19-5.50); Red Cell Distribution Width 15.9 % (11.5-14.5)
[2018-04-30 08:27] LABS: Alanine Aminotransferase 29 Units/L (7-52); Albumin 2.9 g/dL (3.5-5.7); Albumin/Globulin Ratio 0.9 (1.1-2.2); Alkaline Phosphatase 90 Units/L (34-104); Aspartate Amino Transferase 19 Units/L (13-39); BUN/Creatinine Ratio 14 (6-26); Bilirubin,Total 0.4 mg/dL (0.3-1.0); Blood Urea Nitrogen 14 mg/dL (6-20); Calcium 12.6 mg/dL (8.6-10.3); Carbon Dioxide 28 mEq/L (23-29); Chloride 103 mEq/L (98-107); Globulin 3.4 g/dL (2.4-3.5); Glucose 92 mg/dL (70-105); Magnesium 1.5 mg/dL (1.6-2.6); Osmolality,Calculated 278 (280-300); Potassium 4.1 mEq/L (3.5-5.1); Sodium 134 mEq/L (136-145); Total Protein 6.3 g/dL (6.4-8.9); eGFR For Non-African Americans > 60 (> 60)
[2018-04-30] MEDS: Aspirin Enteric Coated 81 MG Tablet PO SCH (09:27)
[2018-04-30] MEDS: Multivit/Ca/Min/Fe/FA 1 TAB TABLET PO SCH (09:28)
[2018-04-30] MEDS: Lactobacillus 1 EACH CAP.SPRINK PO SCH ×2 (09:28→20:13)
[2018-04-30] MEDS: hydrALAZINE 25 MG TABLET PO SCH ×2 (09:28→20:13)
[2018-04-30] MEDS: Loratadine 10 MG TABLET PO SCH (09:29)
[2018-04-30] MEDS: Bumetanide 1 MG TABLET PO SCH ×2 (09:29→16:14)
--- NOTE | 2018-04-30 11:03 | Internal Med Progress Note ---
Addendum entered and electronically signed by Carlitos Allan MD 04/30/18 11:28: I have personally performed a face to face evaluation on this patient. I have r eviewed and agree with the care plan. History and Exam by me shows: Patient has no acute issues. He is pleased that he has been made independent in his room. He plans to be discharged tomorrow. He states that he is well. He told me that he would review follow-up appointments, upon discharge. His calcium is slightly higher today and I told him again this needs to be followed carefully by his primary physician and specialists, until he can have his parathyroid gland removed. Discussed care with other providers and/or nursing. Patient has no complaint of chest discomfort, dyspnea, orthopnea, palpitations, nausea or vomiting, constipation or diarrhea, other changes in bowel habits, difficulty with urination, rash or itching, or other new complaints, except as mentioned above. Review of systems is otherwise negative. Examination: (Except as mentioned above): General: In no apparent distress. Alert and oriented 3. Nondiaphoretic. Head: Atraumatic and normocephalic. Respiratory: No use of accessory muscles. Lungs are clear throughout. Normal airflow. Cardiovascular: Regular rate and rhythm with grade 2/6 systolic murmur, as before.. Abdomen: Bowel sounds are normal. No hepatosplenomegaly mass or tenderness appreciated. Morbidly obese and therefore difficult to palpate deeply. Extremities: No cyanosis clubbing or change in edema. Skin: Warm and non-diaphoretic with no new lesions noted. Original Note: Date of Encounter: 04/30/18 Time of Encounter: 11:02 - Assessment and plan (1) Pleural effusion Current Visit: Yes Status: Acute Assessment and plan: Patient continues to have a minimal amount of serous drainage from left chest tube site. Today's chest x-ray showed continued left basilar pleural effusion, with no infectious process or pneumothorax noted. Noted slight increase in vascular congestion. Denies any productive cough. Denies fever or chills. We will continue with daily dressing change to chest tube site and monitor his drainage. Afebrile (2) Chronic renal insufficiency, stage II (mild) Current Visit: Yes Status: Chronic Assessment and plan: No acute issues. Patient's most recent labs show a creatinine of 1.02. Patient's continue with current medications (3) Parathyroid adenoma Current Visit: No Status: Acute Assessment and plan: Patient's latest calcium shows a slight increase 12.6. Continues on cinacalcet. We will recheck labs in the morning. Patient currently appears asymptomatic. - Time Spent With Patient less than 15 minutes - Subjective Interval history: Patient appears relaxed and currently denies any discomforts or shortness of breath. Patient states he continues to have a minimal amount of serous type drainage to his left chest flank chest tube site. Denies any fever or chills. Denies productive cough. States he continues to get slightly dyspneic during therapy, but again his endurance is greatly improved. Chest x-ray was obtained which shows no change in his left basilar pleural effusion but does show a slight increase in his vascular congestion. Chest x-ray shows no signs of pneumothorax. Patient with a history of a mitral valve replacement - Constitutional Vitals: Temp Pulse Resp BP Pulse Ox 98.3 F 79 18 135/81 93 04/30/18 06:36 04/30/18 06:36 04/30/18 06:36 04/30/18 06:36 04/30/18 06:36 General appearance: Present: A&O X 3 - Head Head exam: Present: atraumatic, normocephalic - Eye Eye exam: Present: PERRL, conjuntiva pink, sclera anicteric Pupils: Present: PERRL - Neck Neck exam general surgery: Present: supple, trachea midline. Absent: lymphadenopathy - Respiratory Respiratory exam: Present: CTAB. Absent: accessory muscle use, rales, rhonchi, wheezes Additional comments: Lungs are clear throughout upper aragon with diminished basilar aragon. Respiratory effort appears relaxed. Patient denies any productive cough. Patient continues to have a small amount of serous type drainage coming from his chest tube site. - Cardiovascular Cardiovascular exam: Present: RRR, +S1, +S2. Absent: diastolic murmur, gallop, rubs, systolic murmur - GI/Abdominal GI/Abdominal exam: Present: normal bowel sounds, soft, no peritoneal signs. Absent: distended, tenderness - Extremities Exam Extremities exam: Present: warm, radial pulses palpable and symmetrical. Absent: calf tenderness, cyanotic, pedal edema - Neurological Exam Neurological exam: Present: CN II-XII intact, oriented X3, no focal deficits. Absent: pronater drift, facial droop, speech deficit - Skin Skin exam: Present: dry, intact Internal Medicine: Result - Labs CBC & Chem 7: 04/30/18 07:58 04/30/18 07:58 Labs: Short CBC 04/30/18 Range/Units 07:58 WBC 11.0 (4.3-11.1) K/mcL Hgb 10.0 L (12.9-16.9) g/dL Hct 32.2 L (37.5-50.1) % Plt Count 288 (140-400) K/mcL BMP 04/30/18 07:58 Sodium 134 L Potassium 4.1 Chloride 103 Carbon Dioxide 28 BUN 14 Creatinine 1.02 Glucose 92 Calcium 12.6 H Liver Function 04/30/18 Range/Units 07:58 Total Bilirubin 0.4 (0.3-1.0) mg/dL AST 19 (13-39) Units/L ALT 29 (7-52) Units/L Alkaline Phosphatase 90 (34-104) Units/L Albumin 2.9 L (3.5-5.7) g/dL - Impressions Impressions Chest X-Ray 04/30/18 00:01 IMPRESSION: 1. Increased pulmonary vascular congestion, consistent with worsening CHF. 2. Stable small, partially loculated left pleural effusion. D/ / Irvin Martinez MD / Irvin Martinez MD Interpreting Provider: Irvin Martinez MD Consult Discharge Plan - Plan Referrals: NONE,PCP [Primary Care Provider] -
[2018-04-30] MEDS: Magnesium Oxide 400 MG TABLET PO SCH (20:13)
[2018-04-30] MEDS: traZODone 50 MG TABLET PO SCH (20:14)
[2018-05-01] MEDS: *HR* HYDROcodone/Acet 5/325 mg TABLET PO PRN ×2 (05:01→11:03)
[2018-05-01 07:09] VITALS: BP 142/83
[2018-05-01] MEDS: Lactobacillus 1 EACH CAP.SPRINK PO SCH (09:32)
[2018-05-01] MEDS: Magnesium Oxide 400 MG TABLET PO SCH (09:33)
[2018-05-01] MEDS: Loratadine 10 MG TABLET PO SCH (09:33)
[2018-05-01] MEDS: hydrALAZINE 25 MG TABLET PO SCH (09:34)
[2018-05-01] MEDS: Bumetanide 1 MG TABLET PO SCH (09:34)
[2018-05-01] MEDS: Aspirin Enteric Coated 81 MG Tablet PO SCH (09:34)
[2018-05-01] MEDS: Multivit/Ca/Min/Fe/FA 1 TAB TABLET PO SCH (09:37)
--- NOTE | 2018-05-01 11:05 | Physician Discharge Referral ---
Home Health/Hosp Referral Info Transfer to: Home Health Provider in Charge Post Discharge: PCP - Diagnosis (1) Hypercalcemia Priority: Primary Status: Acute (2) CAD (coronary artery disease) Priority: Secondary Status: Chronic (3) H/O mitral valve replacement Priority: Secondary Status: Chronic (4) Congestive heart failure Priority: Secondary Status: Chronic (5) General weakness Priority: Primary Status: Acute - Respiratory Orders Smoking Cessation: Smoking cessation has been advised. For more information, call the [place] Tobacco Quit Line at 1-191-KMOU-NOW. - Diet/Nutrition Diet/Nutrition Orders: Cardiac - Activity Activity Orders: Up ad juan, Walker - Services Needed Following services are medically necessary services: Nursing, Physical Therapy - Transfer Medications Home Medications: Aspirin [Adult Aspirin Regimen] 81 mg PO DAILY 02/12/18 [History] Loratadine [Claritin] 10 mg PO DAILY 02/12/18 [History] Multivitamin [One Daily Multivitamin] 2 tab PO DAILY 02/12/18 [History] Pantoprazole Sodium [Protonix] 20 mg PO BID 02/12/18 [History] Potassium Chloride [K-Tab ER] 20 meq PO DAILY 02/12/18 [History] Pravastatin Sodium [Pravachol] 40 mg PO DAILY 02/12/18 [History] Sertraline [Zoloft] 100 mg PO DAILY 02/12/18 [History] traZODone [TraZODone] 50 mg PO HS 02/12/18 [History] Albuterol Sulfate [Ventolin Hfa] 2 puff IH Q4H PRN #0 03/17/18 [Rx] Carvedilol [Coreg] 12.5 mg PO BIDWM #60 tablet 03/17/18 [Rx] Ferrous Sulfate 325 mg PO BIDWM #60 tablet 03/17/18 [Rx] Sucralfate [Carafate] 10 ml PO BID 04/08/18 [History] Bumetanide [Bumex] 1 mg PO BID 04/19/18 [History] HYDROcodone/Acet 5/325 mg [Delight 5-325 mg] 1 tab PO Q4H PRN 04/19/18 [History] Hydralazine HCl 50 mg PO BID 04/19/18 [History] Cinacalcet [Sensipar] 30 mg PO DAILY tablet 04/23/18 [Rx] Cinacalcet [Sensipar] 30 mg PO DAILY #30 tablet 04/23/18 [Rx] Clindamycin HCl [Cleocin HCl] 600 mg PO TID 15 Days #5 cap 04/23/18 [Rx] Allergies/Adverse Reactions: Allergy/AdvReac Type Severity Reaction Status Date / Time Penicillins Allergy See Verified 04/19/18 12:09 Comments Sulfa (Sulfonamide Allergy See Verified 04/19/18 12:09 Antibiotics) Comments Certification: Further, I certify that my clinical findings support that this patient is homebound (i.e. absences from home require considerable and taxing effort and are for medical reasons or taoist services or infrequently or short duration when for other reasons) because: Homebound Reason: Patient requires assistance of a person or device to safely leave home, Post-surgery restriction and or conditions limit ability to leave home, Leaving home requires considerable and taxing effort due to condition Attestation: My signature below is to certify that this patient is under my care and that I, or nurse practitioner, or a physician's media center assistant working with me, has a [id number] encounter with this patient.
--- NOTE | 2018-05-01 11:09 | Discharge Summary ---
Addendum entered and electronically signed by Carlitos Allan MD 05/01/18 11:27: I have personally performed a face to face evaluation on this patient. I have r eviewed and agree with the care plan. History and Exam by me shows: Patient is without acute issue. He notes that he is not using a walker at all. He is doing well in terms of bowels and bladder. He continues to have drainage from the upper incision. This is mild to moderate in amount and is now yellow to yellow/brown. He has no fever, chills, chest pain, etc. Breathing is better. Overall, he is feeling well. Discussed care with other providers and/or nursing. Patient has no complaint of chest discomfort, dyspnea, orthopnea, palpitations, nausea or vomiting, constipation or diarrhea, other changes in bowel habits, difficulty with urination, rash or itching, or other new complaints, except as mentioned above. Review of systems is otherwise negative. Examination: (Except as mentioned above): General: In no apparent distress. Alert and oriented 3. Nondiaphoretic. Head: Atraumatic and normocephalic. Respiratory: No use of accessory muscles. Lungs are clear throughout. Normal airflow. Cardiovascular: Regular rate and rhythm without murmur appreciated. Abdomen: Bowel sounds are normal. No hepatosplenomegaly mass or tenderness appreciated. Obese and therefore difficult to palpate deeply. Patient is examined upright at bedside and this also limits exam. Extremities: No cyanosis clubbing or edema. Skin: Warm and non-diaphoretic with no new lesions noted. He has minimal drainage, change 2 hours ago, which is slightly legal yellow and serous in character. I expressed my concerns to him. I told him that I would like him to have his calcium problem addressed, that his calcium is higher on the increased dose of medication, and that he should discuss with his surgeons and consider earlier surgery to remove his parathyroid adenoma. We have asked that he have follow-up in a week or so regarding calcium and consideration for increasing dose of Sensipar. He is only on 60 mg daily. I also said that he might benefit from addition or change to calcitonin. I explained to the patient that he has such chronic hypercalcemia that he should feel stronger and less "foggy" when this calcium has returned to normal. Original Note: Date of Encounter: 01/04/19 Time of Encounter: 11:07 - Discharge Diagnosis (1) Hypercalcemia Priority: Primary Status: Acute (2) CAD (coronary artery disease) Priority: Secondary Status: Chronic Comments: stable. denies chest pain. Qualifiers: Coronary Disease-Associated Artery/Lesion type: unspecified vessel or lesion type [place] vs. transplanted heart: [place] heart Associated angina: without angina Qualified Code(s): I25.10 - Atherosclerotic heart disease of [place] coronary artery without angina pectoris (3) H/O mitral valve replacement Priority: Secondary Status: Chronic (4) Congestive heart failure Priority: Secondary Status: Chronic Comments: stable. continue current meds. f/u with PCP and cardiology. Qualifiers: Heart failure type: diastolic Heart failure chronicity: chronic Qualified Code(s): I50.32 - Chronic diastolic (congestive) heart failure (5) General weakness Priority: Primary Status: Acute Comments: continue home PT. f/u with PCP. (6) Pleural effusion Priority: Secondary Status: Acute Comments: last CXR shows loculated stable pleural effusion. (7) Chronic renal insufficiency, stage II (mild) Priority: Secondary Status: Chronic Comments: Creatinine 1.02. f/u wtih PCP. (8) Parathyroid adenoma Priority: Primary Status: Acute Comments: calcium elevated. continue cinacet. f/u with surgeon as scheduled. Hospital course: Mr. Zheng is a 52 year old male discharging to home after a rehab stay for general weakness. Patient has hypercalcemia. Last calcium was yesterday at 12.6. Has history of plural effusion. Chest x-ray yesterday shows stable small left loculated pleural effusion. pt has several outpatient follow up appts scheduled. PCP, chest surgeon and specialist to f/u parathyroid adenoma. pt denies pain or any other issues or questions at this time. Discharge discussed with: patient, nurse, social work - Time Spent with Patient Total time spent providing and/or coordinating discharge services: Greater than 30 minutes - Discharge Medications Home Medications: Aspirin [Adult Aspirin Regimen] 81 mg PO DAILY 02/12/18 [History] Loratadine [Claritin] 10 mg PO DAILY 02/12/18 [History] Multivitamin [One Daily Multivitamin] 2 tab PO DAILY 02/12/18 [History] Pantoprazole Sodium [Protonix] 20 mg PO BID 02/12/18 [History] Potassium Chloride [K-Tab ER] 20 meq PO DAILY 02/12/18 [History] Pravastatin Sodium [Pravachol] 40 mg PO DAILY 02/12/18 [History] Sertraline [Zoloft] 100 mg PO DAILY 02/12/18 [History] traZODone [TraZODone] 50 mg PO HS 02/12/18 [History] Albuterol Sulfate [Ventolin Hfa] 2 puff IH Q4H PRN #0 03/17/18 [Rx] Carvedilol [Coreg] 12.5 mg PO BIDWM #60 tablet 03/17/18 [Rx] Ferrous Sulfate 325 mg PO BIDWM #60 tablet 03/17/18 [Rx] Bumetanide [Bumex] 1 mg PO BID 04/19/18 [History] HYDROcodone/Acet 5/325 mg [[place] 5-325 mg] 1 tab PO Q4H PRN 04/19/18 [History] Hydralazine HCl 50 mg PO BID 04/19/18 [History] Clindamycin HCl [Cleocin HCl] 600 mg PO TID 15 Days #5 cap 04/23/18 [Rx] Acetaminophen [Tylenol] 650 mg PO Q4HR PRN tablet 05/01/18 [Rx] Cinacalcet [Sensipar] 60 mg PO DAILY 14 Days #14 tablet 05/01/18 [Rx] Lactobacillus [Culturelle] 1 each PO BID cap.sprink 05/01/18 [Rx] Magnesium Oxide [Mag-Ox] 400 mg PO BID tablet 05/01/18 [Rx] Polyethylene Glycol 3350 [MiraLAX] 17 gm PO DAILY PRN powd.pack 05/01/18 [Rx] Allergies/Adverse Reactions: Allergy/AdvReac Type Severity Reaction Status Date / Time Penicillins Allergy See Verified 04/19/18 12:09 Comments Sulfa (Sulfonamide Allergy See Verified 04/19/18 12:09 Antibiotics) Comments Date of admission: 04/24/18 16:34 Primary care physician: PCP NONE Consults: 04/24/18 16:41 Consult to Occupational Therapy [CONS] Routine Comment: Evaluate, develop and implement POC Reason for Consult: deconditioning Does patient have active BEDREST order?: No Is patient medically & hemodynamically stable?: Yes Patient assessed for mobility or mobilized this visit?: No Consult to Physical Therapy [CONS] Routine Comment: Evaluate, develop and implement POC Reason for Consult: deconditioning Does patient have active BEDREST order?: No Is patient medically & hemodynamically stable?: Yes Patient assessed for mobility or mobilized this visit?: No Consult to Recreational Therapy [CONS] Routine Comment: Evaluate, develop and implement POC Consult to Folded Cloth Taper [CONS] Routine Reason for SW Consult: d/c planning 04/24/18 17:35 Consult to Physical Medicine/Rehab [CONS] Routine Reason for Consult: deconditioning Call Completed: Yes Discharging clinician: Carlitos Allan Anticipated date of discharge: 05/01/18 - Constitutional Vitals: Temp Pulse Resp BP Pulse Ox 98.0 F 83 18 142/83 93 05/01/18 07:08 05/01/18 07:08 05/01/18 07:08 05/01/18 07:08 05/01/18 07:08 General appearance: Present: A&O X 3, pleasant, no acute distress, obese, answers questions appropriately - Head Head exam: Present: atraumatic, normocephalic - Eye Eye exam: Present: PERRL, conjuntiva pink, sclera anicteric Pupils: Present: PERRL - Neck Neck exam general surgery: Present: supple, trachea midline. Absent: lymphadenopathy - Respiratory Respiratory exam: Present: CTAB. Absent: accessory muscle use, rales, rhonchi, wheezes - Cardiovascular Cardiovascular exam: Present: RRR, +S1, +S2. Absent: diastolic murmur, gallop, rubs, systolic murmur - GI/Abdominal GI/Abdominal exam: Present: normal bowel sounds, soft, no peritoneal signs. Absent: distended, tenderness - Extremities Exam Extremities exam: Present: warm, radial pulses palpable and symmetrical. Absent: calf tenderness, cyanotic, pedal edema Additional comments: nonpitting bilat pedal edema - Neurological Exam Neurological exam: Present: CN II-XII intact, oriented X3, no focal deficits. Absent: pronater drift, facial droop, speech deficit - Skin Skin exam: Present: dry, intact Additional comments: left sided chest wounds X3, mod amt of serous drainage. - Patient Status Disposition: Home Health Service Condition: Fair Functional capacity at discharge: uses cane/walker Overall status at discharge: patient is progressing back to baseline - Discharge Instructions Follow Up With: Americo Wooten MD [Non-Partnered Physician] - 05/04/18 10:30 am (Please follow up with Americo Wooten MD for follow up with Parathyroid on 05/04/2018 at 10:30am) Cecilio Pozo MD [Partnered Physician] - 05/04/18 1:00 pm (Please follow up with Dr. Sánchez ott 05/04/2018 at 1:00pm) Mynor Albrecht MD [Partnered Physician] - 05/07/18 8:00 am (Please follow up with batt packer Mynor Albrecht MD on 05/07/2017 at 8:00 am) Jordon Brand MD [Partnered Physician] - 05/11/18 11:00 am (Please follow up with thoracic surgeon Jordon Brand MD on 05/11/2018 at 11:00am) Leonidas Corral DO [Partnered Physician] - 06/04/18 2:00 pm (please follow up with cardiology Leonidas Corral DO on 06/04/2018 @ 2:00PM) Additional Instructions: Follow-up appointments: If there is not an appointment listed below, please call your physician and schedule a follow-up appointment. If you have congestive heart failure and your symptoms return, make an appointment with your physician. Medication List: Carry an up to date list of medications you are taking at all time. We have given you an updated medication list including any new medications that you have been prescribed. Please provide that list to your primary provider Symptoms: If your condition changes or you experience any of the following symptoms, notify your physician immediately: Unusual or worsening pain, fever, persistent nausea and vomiting, bleeding, increase in swelling (especially in your legs), sudden weight gain, extreme dizziness, chest pain, increased drainage or redness from a wound or incision. Go to the emergency department if you experience a problem with breathing. Weights: If you have a history of swelling or shortness of breath, weigh yourself daily and notify your physician if you have a weight gain of two or more pounds in one day or 5 or more pounds in a week. If you experience any of the warning signs for stroke: Sudden numbness or weakness of the face, arm or leg; especially on one side of the body, sudden confusion, trouble speaking or understanding, sudden trouble seeing in one or both eyes, sudden trouble walking, dizziness, loss of balance or coordination, sudden sever headache with no cause; Call 911 or go to the emergency room. Stroke is a medical emergency. Some risk factors for stroke: Age, cigarette smoking, diabetes, excessive alcohol consumption, family history, high blood pressure, overweight, physical inactivity, prior stroke, heart attack, diagnosis of carotid artery stenosis or other artery disease. If you smoke, STOP: Smoking or tobacco use significantly increases your risk of heart and lung disease. Your chance of disease greatly increases if you continue to smoke. For more information, call the [place] tobacco quit line for smoking cessation 6-313-AJGU-NOW ( ) - Diet and Activity Activity: as per physical therapy Diet: low salt diet
== END 2018-05-01 12:44 | disposition home health service (06) | DRG 641 ==
LOC: INPGRE 16:34